=== PATIENT | male | born 1980 | race Hispanic/Latino ===

== ENCOUNTER 2021-01-08 06:54 | Inpatient (IN) | payer SELFPAY ==
[2021-01-08] MEDS ORDERED: Artificial Tear Sol 15 ML BOT EA EYE PRN (09:42)
[2021-01-08] MEDS ORDERED: Sodium Chloride 0.65% Nasal 44 ML BOT EA NARE PRN (09:42)
[2021-01-08] MEDS ORDERED: hydrALAZINE 20 MG/ML VIAL SLOW IVP PRN (09:42)
[2021-01-08] MEDS ORDERED: Bisacodyl 10 MG SUPP PR PRN (09:42)
[2021-01-08] MEDS ORDERED: Senokot S 8.6-50 MG TAB PO PRN (09:42)
[2021-01-08] MEDS ORDERED: HYDROcodone/Acetaminophen 5/325 mg Tablet PO PRN (09:42)
[2021-01-08] MEDS ORDERED: Loperamide HCl 2 MG CAP PO PRN (09:42)
[2021-01-08] MEDS ORDERED: Zolpidem Tartrate 5 MG TAB PO PRN (09:42)
[2021-01-08] MEDS ORDERED: Loratadine 10 MG TAB PO PRN (09:42)
[2021-01-08] MEDS ORDERED: Calcium Carbonate 500 MG ChewTAB PO PRN (09:42)
[2021-01-08] MEDS ORDERED: Hydrocerin (Eucerin) Cream 120 gm Jar TOP PRN (09:42)
[2021-01-08] MEDS ORDERED: Ondansetron ODT 4 MG TAB PO PRN (09:42)
[2021-01-08] MEDS ORDERED: Ondansetron PF 4 MG/2 ML Vial IVP PRN (09:42)
[2021-01-08] MEDS ORDERED: REMDESIVIR 200 MG in Sodium Chloride 0.9% 250 ML 210 ML IV SCH (10:15)
[2021-01-08] MEDS ORDERED: Cholecalciferol 1,000 UNITS (25 MCG) TAB PO SCH (12:00)
[2021-01-08] MEDS ORDERED: Ascorbic Acid 500 mg Chewable Tablet PO SCH (12:00)
[2021-01-08] MEDS ORDERED: Zinc Sulfate 220 MG CAP PO SCH (12:00)
[2021-01-08] MEDS ORDERED: Enoxaparin Sodium 40 MG/0.4 ML SYRINGE SC SCH (12:15)
[2021-01-09] MEDS: Guaifenesin DM 100-10/5 ML UDCUP PO PRN ×2 (01:45→10:12)
[2021-01-09 05:55] LABS: #Lymphocytes 1.8 thou/uL (1.20-3.40); #Monocytes 0.8 thou/uL (0.11-0.59); #Neutrophils 9.9 thou/uL (1.40-6.50); %Basophils 0.2 % (0.0-1.0); %Eosinophils 0.1 % (0.0-10.0); %Lymphocytes 14.6 % (21.0-51.0); %Monocytes 6.1 % (0.0-10.0); %Neutrophils 79.1 % (42.0-75.0); Hemoglobin 14.3 g/dL (14.0-18.0); Mean Corpuscular HGB CONC 32.8 g/dL (32.0-36.0); Mean Corpuscular Volume 82.3 fL (78.0-98.0); Mean Platelet Volume 7.6 fL (7.4-10.4); Platelet Count 226 thou/uL (130-400); RBC Distribution Width 13.9 % (11.5-14.5); Red Blood Cell (RBC) Count 5.31 mill/uL (4.70-6.10); White Blood Cell (WBC) Count 12.5 thou/uL (4.8-10.8)
[2021-01-09 06:14] LABS: ALT (SGPT) 88 U/L (8-55); AST (SGOT) 65 U/L (5-34); Albumin 3.5 g/dL (3.5-5.0); Alkaline Phosphatase 56 U/L (40-110); Anion Gap 14 mmol/L (10-20); BUN (Urea Nitrogen) 18 mg/dL (8.9-20.6); Bilirubin, Total 0.4 mg/dL (0.2-1.2); Calc. Creatinine Clearance 161 mL/min (70-130); Calcium 8.5 mg/dL (7.8-10.44); Carbon Dioxide 21 mmol/L (22-29); Chloride 110 mmol/L (98-107); Globulin 3.9 g/dL (2.4-3.5); Glucose 126 mg/dL (70-105); Magnesium 2.1 mg/dL (1.6-2.6); Phosphorus 2.9 mg/dL (2.3-4.7); Potassium 3.7 mmol/L (3.5-5.1); Protein, Total 7.4 g/dL (6.0-8.3); Sodium 141 mmol/L (136-145)
[2021-01-09] MEDS: Albuterol 200 PUFF (6.7GM INHALER) INH PRN ×3 (08:14→18:59)
[2021-01-09] MEDS: Acetaminophen 325 MG TAB PO PRN ×2 (08:15→18:56)
[2021-01-09] MEDS: Zinc Sulfate 220 MG CAP PO SCH (08:16)
[2021-01-09] MEDS: Cholecalciferol 1,000 UNITS (25 MCG) TAB PO SCH (08:16)
[2021-01-09] MEDS: Ascorbic Acid 500 mg Chewable Tablet PO SCH (08:16)
[2021-01-09] MEDS: Fluticasone Propionate Nasal Spray 16 gm Bottle NASAL SCH (08:16)
[2021-01-09] MEDS: Enoxaparin Sodium 40 MG/0.4 ML SYRINGE SC SCH (08:18)
[2021-01-09] MEDS: Dexamethasone 4 mg/ml Vial SLOW IVP SCH (08:18)
[2021-01-09] MEDS: REMDESIVIR 100 MG in Sodium Chloride 0.9% 250 ML 230 ML IV SCH (10:13)
[2021-01-10 08:19] LABS: Anion Gap 13 mmol/L (10-20); BUN (Urea Nitrogen) 16 mg/dL (8.9-20.6); Calc. Creatinine Clearance 188 mL/min (70-130); Calcium 8.4 mg/dL (7.8-10.44); Carbon Dioxide 26 mmol/L (22-29); Chloride 106 mmol/L (98-107); Glucose 97 mg/dL (70-105); Potassium 3.8 mmol/L (3.5-5.1); Sodium 141 mmol/L (136-145)
[2021-01-10 08:47] LABS: Band 8 % (5-11); Hemoglobin 14.7 g/dL (14.0-18.0); Lymphocytes 21 % (21-51); MDiff Complete? YES; Mean Corpuscular HGB CONC 32.4 g/dL (32.0-36.0); Mean Corpuscular Hemoglobin 26.8 pg (27.0-31.0); Mean Corpuscular Volume 82.7 fL (78.0-98.0); Mean Platelet Volume 7.3 fL (7.4-10.4); Monocytes 5 % (0-10); Neutrophil 66 % (42-75); Platelet Count 278 thou/uL (130-400); RBC Distribution Width 13.9 % (11.5-14.5); White Blood Cell (WBC) Count 14.2 thou/uL (4.8-10.8)
[2021-01-10] MEDS: Enoxaparin Sodium 40 MG/0.4 ML SYRINGE SC SCH ×2 (09:00→20:55)
[2021-01-10] MEDS: Ascorbic Acid 500 mg Chewable Tablet PO SCH (09:01)
[2021-01-10] MEDS: Zinc Sulfate 220 MG CAP PO SCH (09:01)
[2021-01-10] MEDS: Cholecalciferol 1,000 UNITS (25 MCG) TAB PO SCH (09:01)
[2021-01-10] MEDS: Dexamethasone 4 mg/ml Vial SLOW IVP SCH (09:01)
[2021-01-10] MEDS: Fluticasone Propionate Nasal Spray 16 gm Bottle NASAL SCH (09:02)
[2021-01-10] MEDS: REMDESIVIR 100 MG in Sodium Chloride 0.9% 250 ML 230 ML IV SCH (10:58)
[2021-01-10] MEDS: Ivermectin 3 MG TAB PO SCH (16:44)
[2021-01-10] MEDS: Dexamethasone 10 MG/ML VIAL SLOW IVP SCH (20:55)
[2021-01-11] MEDS: Enoxaparin Sodium 40 MG/0.4 ML SYRINGE SC SCH ×2 (09:18→20:36)
[2021-01-11] MEDS: Zinc Sulfate 220 MG CAP PO SCH (09:19)
[2021-01-11] MEDS: Dexamethasone 10 MG/ML VIAL SLOW IVP SCH ×2 (09:19→20:36)
[2021-01-11] MEDS: Ascorbic Acid 500 mg Chewable Tablet PO SCH (09:19)
[2021-01-11] MEDS: Cholecalciferol 1,000 UNITS (25 MCG) TAB PO SCH (09:19)
[2021-01-11] MEDS: Fluticasone Propionate Nasal Spray 16 gm Bottle NASAL SCH (09:20)
[2021-01-11] MEDS: REMDESIVIR 100 MG in Sodium Chloride 0.9% 250 ML 230 ML IV SCH (11:17)
[2021-01-11] MEDS: Ivermectin 3 MG TAB PO SCH (15:32)
[2021-01-12 03:53] LABS: Hemoglobin 14.7 g/dL (14.0-18.0); Mean Corpuscular HGB CONC 32.7 g/dL (32.0-36.0); Mean Corpuscular Hemoglobin 27.1 pg (27.0-31.0); Mean Corpuscular Volume 82.8 fL (78.0-98.0); Mean Platelet Volume 7.7 fL (7.4-10.4); Platelet Count 271 thou/uL (130-400); RBC Distribution Width 13.8 % (11.5-14.5); Red Blood Cell (RBC) Count 5.42 mill/uL (4.70-6.10); White Blood Cell (WBC) Count 15.5 thou/uL (4.8-10.8)
[2021-01-12 03:58] LABS: ALT (SGPT) 176 U/L (8-55); AST (SGOT) 81 U/L (5-34); Albumin 3.3 g/dL (3.5-5.0); Alkaline Phosphatase 67 U/L (40-110); Anion Gap 13 mmol/L (10-20); BUN (Urea Nitrogen) 18 mg/dL (8.9-20.6); Bilirubin, Total 0.6 mg/dL (0.2-1.2); Calc. Creatinine Clearance 186 mL/min (70-130); Calcium 8.4 mg/dL (7.8-10.44); Carbon Dioxide 22 mmol/L (22-29); Chloride 107 mmol/L (98-107); Globulin 3.6 g/dL (2.4-3.5); Glucose 144 mg/dL (70-105); Protein, Total 6.9 g/dL (6.0-8.3); Sodium 138 mmol/L (136-145)
[2021-01-12 04:19] LABS: Band 5 % (5-11); Lymphocytes 12 % (21-51); MDiff Complete? YES; Monocytes 3 % (0-10); Myelocyte 1 % (0-0); Neutrophil 79 % (42-75)
[2021-01-12] MEDS: Enoxaparin Sodium 40 MG/0.4 ML SYRINGE SC SCH (09:35)
[2021-01-12] MEDS: Dexamethasone 10 MG/ML VIAL SLOW IVP SCH ×2 (09:35→21:13)
[2021-01-12] MEDS: Cholecalciferol 1,000 UNITS (25 MCG) TAB PO SCH (09:36)
[2021-01-12] MEDS: Ascorbic Acid 500 mg Chewable Tablet PO SCH (09:36)
[2021-01-12] MEDS: Zinc Sulfate 220 MG CAP PO SCH (09:36)
[2021-01-12] MEDS: Fluticasone Propionate Nasal Spray 16 gm Bottle NASAL SCH (09:36)
[2021-01-12] MEDS: REMDESIVIR 100 MG in Sodium Chloride 0.9% 250 ML 230 ML IV SCH (11:06)
[2021-01-12] MEDS ORDERED: Enoxaparin Sodium 80 MG/0.8 ML SYRINGE SC SCH (12:30)
[2021-01-12] MEDS ORDERED: Iopamidol-370 76% 500 ML 1 ML ONE (13:46)
[2021-01-12] MEDS: Ivermectin 3 MG TAB PO SCH (16:14)
[2021-01-12] MEDS: Enoxaparin Sodium 120 MG/0.8 ML SYRINGE SC SCH (21:13)
[2021-01-13 04:22] LABS: Mean Corpuscular HGB CONC 31.6 g/dL (32.0-36.0); Mean Corpuscular Hemoglobin 26.1 pg (27.0-31.0); Mean Corpuscular Volume 82.7 fL (78.0-98.0); Mean Platelet Volume 7.6 fL (7.4-10.4); Platelet Count 222 thou/uL (130-400); RBC Distribution Width 14.1 % (11.5-14.5); Red Blood Cell (RBC) Count 5.76 mill/uL (4.70-6.10)
[2021-01-13 04:35] LABS: Anion Gap 13 mmol/L (10-20); BUN (Urea Nitrogen) 20 mg/dL (8.9-20.6); Calc. Creatinine Clearance 177 mL/min (70-130); Calcium 8.4 mg/dL (7.8-10.44); Carbon Dioxide 22 mmol/L (22-29); Chloride 106 mmol/L (98-107); Glucose 117 mg/dL (70-105); Potassium 4.2 mmol/L (3.5-5.1); Sodium 137 mmol/L (136-145)
[2021-01-13 06:06] LABS: White Blood Cell (WBC) Count 22.6 thou/uL (4.8-10.8)
[2021-01-13 06:07] LABS: Band 5 % (5-11); Eosinophils 1 % (0-10); Lymphocytes 8 % (21-51); MDiff Complete? YES; Monocytes 2 % (0-10); Neutrophil 84 % (42-75)
[2021-01-13] MEDS: Zinc Sulfate 220 MG CAP PO SCH (10:04)
[2021-01-13] MEDS: Enoxaparin Sodium 120 MG/0.8 ML SYRINGE SC SCH ×2 (10:04→20:39)
[2021-01-13] MEDS: Ascorbic Acid 500 mg Chewable Tablet PO SCH (10:04)
[2021-01-13] MEDS: Dexamethasone 10 MG/ML VIAL SLOW IVP SCH ×2 (10:04→20:40)
[2021-01-13] MEDS: Cholecalciferol 1,000 UNITS (25 MCG) TAB PO SCH (10:04)
[2021-01-13] MEDS: Fluticasone Propionate Nasal Spray 16 gm Bottle NASAL SCH (10:05)
[2021-01-13] MEDS: Ivermectin 3 MG TAB PO SCH (20:39)
[2021-01-14] MEDS: Ascorbic Acid 500 mg Chewable Tablet PO SCH (09:48)
[2021-01-14] MEDS: Cholecalciferol 1,000 UNITS (25 MCG) TAB PO SCH (09:48)
[2021-01-14] MEDS: Fluticasone Propionate Nasal Spray 16 gm Bottle NASAL SCH (09:48)
[2021-01-14] MEDS: Dexamethasone 10 MG/ML VIAL SLOW IVP SCH ×2 (09:49→20:56)
[2021-01-14] MEDS: Enoxaparin Sodium 120 MG/0.8 ML SYRINGE SC SCH ×2 (09:49→20:56)
[2021-01-14] MEDS: Zinc Sulfate 220 MG CAP PO SCH (09:51)
[2021-01-14] MEDS: Ivermectin 3 MG TAB PO SCH (23:03)
[2021-01-15 04:14] LABS: Hemoglobin 16.2 g/dL (14.0-18.0); Mean Corpuscular HGB CONC 32.7 g/dL (32.0-36.0); Mean Corpuscular Hemoglobin 26.8 pg (27.0-31.0); Mean Corpuscular Volume 82.1 fL (78.0-98.0); Mean Platelet Volume 7.6 fL (7.4-10.4); Platelet Count 180 thou/uL (130-400); RBC Distribution Width 14.2 % (11.5-14.5); Red Blood Cell (RBC) Count 6.03 mill/uL (4.70-6.10); White Blood Cell (WBC) Count 20.2 thou/uL (4.8-10.8)
[2021-01-15 04:17] LABS: Anion Gap 15 mmol/L (10-20); BUN (Urea Nitrogen) 20 mg/dL (8.9-20.6); Calc. Creatinine Clearance 178 mL/min (70-130); Calcium 8.4 mg/dL (7.8-10.44); Carbon Dioxide 18 mmol/L (22-29); Chloride 107 mmol/L (98-107); Glucose 141 mg/dL (70-105); Potassium 4.6 mmol/L (3.5-5.1); Sodium 135 mmol/L (136-145)
[2021-01-15 04:36] LABS: Band 7 % (5-11); Lymphocytes 16 % (21-51); MDiff Complete? YES; Monocytes 1 % (0-10); Neutrophil 76 % (42-75)
[2021-01-15] MEDS: Cholecalciferol 1,000 UNITS (25 MCG) TAB PO SCH (09:49)
[2021-01-15] MEDS: Ascorbic Acid 500 mg Chewable Tablet PO SCH (09:49)
[2021-01-15] MEDS: Fluticasone Propionate Nasal Spray 16 gm Bottle NASAL SCH (09:50)
[2021-01-15] MEDS: Enoxaparin Sodium 120 MG/0.8 ML SYRINGE SC SCH ×2 (09:50→20:17)
[2021-01-15] MEDS: Dexamethasone 10 MG/ML VIAL SLOW IVP SCH ×2 (09:50→20:17)
[2021-01-15] MEDS: Zinc Sulfate 220 MG CAP PO SCH (09:50)
[2021-01-15] MEDS: Doxycycline 100 MG CAP PO SCH (20:17)
[2021-01-15] MEDS: Ivermectin 3 MG TAB PO SCH (20:17)
[2021-01-16 04:17] LABS: Anion Gap 15 mmol/L (10-20); BUN (Urea Nitrogen) 16 mg/dL (8.9-20.6); CRP (Inflammatory) 1.78 mg/dL (= or < 0.5); Calc. Creatinine Clearance 188 mL/min (70-130); Calcium 8.3 mg/dL (7.8-10.44); Carbon Dioxide 18 mmol/L (22-29); Chloride 104 mmol/L (98-107); Glucose 146 mg/dL (70-105); Potassium 4.5 mmol/L (3.5-5.1); Sodium 132 mmol/L (136-145)
[2021-01-16 04:36] LABS: Hemoglobin 16.1 g/dL (14.0-18.0); Lymphocytes 8 % (21-51); MDiff Complete? YES; Mean Corpuscular HGB CONC 32.7 g/dL (32.0-36.0); Mean Corpuscular Hemoglobin 26.9 pg (27.0-31.0); Mean Corpuscular Volume 82.2 fL (78.0-98.0); Mean Platelet Volume 7.8 fL (7.4-10.4); Monocytes 1 % (0-10); Neutrophil 91 % (42-75); Platelet Count 151 thou/uL (130-400); Platelet Morphology Comment Appears Adequate; RBC Distribution Width 14.2 % (11.5-14.5); RBC Morphology Normal; Red Blood Cell (RBC) Count 6.01 mill/uL (4.70-6.10); White Blood Cell (WBC) Count 18.9 thou/uL (4.8-10.8)
[2021-01-16] MEDS: Enoxaparin Sodium 120 MG/0.8 ML SYRINGE SC SCH ×2 (09:54→20:53)
[2021-01-16] MEDS: Ascorbic Acid 500 mg Chewable Tablet PO SCH (09:54)
[2021-01-16] MEDS: Zinc Sulfate 220 MG CAP PO SCH (09:54)
[2021-01-16] MEDS: Cholecalciferol 1,000 UNITS (25 MCG) TAB PO SCH (09:54)
[2021-01-16] MEDS: Doxycycline 100 MG CAP PO SCH ×2 (09:54→20:53)
[2021-01-16] MEDS: Albuterol 200 PUFF (6.7GM INHALER) INH PRN ×2 (09:55→16:00)
[2021-01-16] MEDS: Fluticasone Propionate Nasal Spray 16 gm Bottle NASAL SCH (10:05)
[2021-01-16] MEDS: Dexamethasone 10 MG/ML VIAL SLOW IVP SCH ×2 (10:13→20:53)
[2021-01-16] MEDS: Ivermectin 3 MG TAB PO SCH (20:53)
[2021-01-16] MEDS: Benzonatate 100 MG CAP PO PRN (20:53)
[2021-01-16] MEDS: Melatonin 3 MG TAB PO PRN (22:26)
[2021-01-17 03:57] LABS: Hemoglobin 16.7 g/dL (14.0-18.0); Platelet Count 164 thou/uL (130-400)
[2021-01-17 04:14] LABS: Calc. Creatinine Clearance 172 mL/min (70-130)
[2021-01-17 04:16] LABS: Anion Gap 15 mmol/L (10-20); BUN (Urea Nitrogen) 20 mg/dL (8.9-20.6); CRP (Inflammatory) 1.56 mg/dL (= or < 0.5); Calc. Creatinine Clearance 179 mL/min (70-130); Calcium 8.8 mg/dL (7.8-10.44); Carbon Dioxide 19 mmol/L (22-29); Chloride 103 mmol/L (98-107); Glucose 135 mg/dL (70-105); Potassium 4.9 mmol/L (3.5-5.1); Sodium 132 mmol/L (136-145)
[2021-01-17 04:33] LABS: Band 1 % (5-11); Lymphocytes 9 % (21-51); MDiff Complete? YES; Mean Corpuscular HGB CONC 33.4 g/dL (32.0-36.0); Mean Corpuscular Hemoglobin 27.4 pg (27.0-31.0); Mean Corpuscular Volume 82.1 fL (78.0-98.0); Mean Platelet Volume 7.9 fL (7.4-10.4); Monocytes 5 % (0-10); Neutrophil 85 % (42-75); Platelet Count 157 thou/uL (130-400); Platelet Morphology Comment Appears Adequate; RBC Distribution Width 14.3 % (11.5-14.5); Red Blood Cell (RBC) Count 6.19 mill/uL (4.70-6.10); White Blood Cell (WBC) Count 17.7 thou/uL (4.8-10.8)
[2021-01-17] MEDS: Enoxaparin Sodium 120 MG/0.8 ML SYRINGE SC SCH ×2 (08:20→20:16)
[2021-01-17] MEDS: Dexamethasone 10 MG/ML VIAL SLOW IVP SCH ×2 (08:20→20:17)
[2021-01-17] MEDS: Cholecalciferol 1,000 UNITS (25 MCG) TAB PO SCH (08:20)
[2021-01-17] MEDS: Zinc Sulfate 220 MG CAP PO SCH (08:20)
[2021-01-17] MEDS: Doxycycline 100 MG CAP PO SCH ×2 (08:20→20:15)
[2021-01-17] MEDS: Ascorbic Acid 500 mg Chewable Tablet PO SCH (08:20)
[2021-01-17] MEDS: Fluticasone Propionate Nasal Spray 16 gm Bottle NASAL SCH (08:21)
[2021-01-17] MEDS: ALPRAZolam 0.5 MG TAB PO PRN (16:05)
[2021-01-17] MEDS: Ivermectin 3 MG TAB PO SCH (20:15)
[2021-01-18] MEDS: Melatonin 3 MG TAB PO PRN ×2 (00:27→21:38)
[2021-01-18 04:14] LABS: Anion Gap 14 mmol/L (10-20); BUN (Urea Nitrogen) 23 mg/dL (8.9-20.6); CRP (Inflammatory) 0.52 mg/dL (= or < 0.5); Calc. Creatinine Clearance 169 mL/min (70-130); Calcium 8.5 mg/dL (7.8-10.44); Carbon Dioxide 20 mmol/L (22-29); Chloride 105 mmol/L (98-107); Glucose 131 mg/dL (70-105); Potassium 4.6 mmol/L (3.5-5.1); Sodium 134 mmol/L (136-145)
[2021-01-18 04:18] LABS: Band 1 % (5-11); Hemoglobin 16.6 g/dL (14.0-18.0); Lymphocytes 4 % (21-51); MDiff Complete? YES; Mean Corpuscular HGB CONC 32.3 g/dL (32.0-36.0); Mean Corpuscular Hemoglobin 26.4 pg (27.0-31.0); Mean Corpuscular Volume 81.8 fL (78.0-98.0); Mean Platelet Volume 8.2 fL (7.4-10.4); Neutrophil 95 % (42-75); Platelet Count 163 thou/uL (130-400); Platelet Morphology Comment Appears Adequate; RBC Distribution Width 14.4 % (11.5-14.5); RBC Morphology Normal; Red Blood Cell (RBC) Count 6.28 mill/uL (4.70-6.10); White Blood Cell (WBC) Count 18.8 thou/uL (4.8-10.8)
[2021-01-18] MEDS: Ascorbic Acid 500 mg Chewable Tablet PO SCH (09:14)
[2021-01-18] MEDS: Dexamethasone 10 MG/ML VIAL SLOW IVP SCH ×2 (09:15→20:21)
[2021-01-18] MEDS: Fluticasone Propionate Nasal Spray 16 gm Bottle NASAL SCH (09:15)
[2021-01-18] MEDS: Cholecalciferol 1,000 UNITS (25 MCG) TAB PO SCH (09:15)
[2021-01-18] MEDS: Doxycycline 100 MG CAP PO SCH ×2 (09:15→20:21)
[2021-01-18] MEDS: Enoxaparin Sodium 120 MG/0.8 ML SYRINGE SC SCH ×2 (09:15→20:20)
[2021-01-18] MEDS: Zinc Sulfate 220 MG CAP PO SCH (09:16)
[2021-01-18] MEDS: ALPRAZolam 0.5 MG TAB PO PRN ×2 (10:05→21:37)
[2021-01-18] MEDS: Ivermectin 3 MG TAB PO SCH (20:22)
[2021-01-19 04:41] LABS: Anion Gap 15 mmol/L (10-20); BUN (Urea Nitrogen) 31 mg/dL (8.9-20.6); Calc. Creatinine Clearance 164 mL/min (70-130); Calcium 8.6 mg/dL (7.8-10.44); Carbon Dioxide 18 mmol/L (22-29); Chloride 105 mmol/L (98-107); Glucose 154 mg/dL (70-105); Potassium 4.7 mmol/L (3.5-5.1); Sodium 133 mmol/L (136-145)
[2021-01-19 05:12] LABS: Hemoglobin 16.1 g/dL (14.0-18.0); Lymphocytes 10 % (21-51); MDiff Complete? YES; Mean Corpuscular HGB CONC 31.5 g/dL (32.0-36.0); Mean Corpuscular Hemoglobin 25.9 pg (27.0-31.0); Mean Corpuscular Volume 82.4 fL (78.0-98.0); Mean Platelet Volume 8.7 fL (7.4-10.4); Monocytes 2 % (0-10); Neutrophil 82 % (42-75); Platelet Count 165 thou/uL (130-400); Platelet Morphology Comment Appears Adequate; RBC Distribution Width 14.3 % (11.5-14.5); RBC Morphology Normal; Reactive Lymphocytes 6 % (0-10); Red Blood Cell (RBC) Count 6.21 mill/uL (4.70-6.10); White Blood Cell (WBC) Count 18.6 thou/uL (4.8-10.8)
[2021-01-19] MEDS: Ascorbic Acid 500 mg Chewable Tablet PO SCH (09:26)
[2021-01-19] MEDS: Zinc Sulfate 220 MG CAP PO SCH (09:27)
[2021-01-19] MEDS: Cholecalciferol 1,000 UNITS (25 MCG) TAB PO SCH (09:27)
[2021-01-19] MEDS: Dexamethasone 10 MG/ML VIAL SLOW IVP SCH ×2 (09:27→22:37)
[2021-01-19] MEDS: Enoxaparin Sodium 120 MG/0.8 ML SYRINGE SC SCH ×2 (09:27→22:37)
[2021-01-19] MEDS: Doxycycline 100 MG CAP PO SCH ×2 (09:27→22:19)
[2021-01-19] MEDS: Sodium Chloride 0.9% 1,000 ML IV SCH ×2 (09:28→22:38)
[2021-01-19] MEDS: Fluticasone Propionate Nasal Spray 16 gm Bottle NASAL SCH (09:28)
[2021-01-19] MEDS: Pantoprazole 40 MG VIAL IVP SCH (09:28)
[2021-01-19] MEDS: Ivermectin 3 MG TAB PO SCH (22:38)
[2021-01-20] MEDS: Sodium Chloride 0.9% 1,000 ML IV SCH ×2 (00:16→14:40)
[2021-01-20] MEDS: Melatonin 3 MG TAB PO PRN ×2 (00:19→22:07)
[2021-01-20 04:12] LABS: #Eosinphils 0.1 thou/uL (0.0-0.7); #Lymphocytes 1.8 thou/uL (1.20-3.40); #Monocytes 0.7 thou/uL (0.11-0.59); #Neutrophils 16.4 thou/uL (1.40-6.50); %Eosinophils 0.5 % (0.0-10.0); %Lymphocytes 9.6 % (21.0-51.0); %Monocytes 3.9 % (0.0-10.0); %Neutrophils 86.1 % (42.0-75.0); Hemoglobin 16.1 g/dL (14.0-18.0); Mean Corpuscular HGB CONC 33.5 g/dL (32.0-36.0); Mean Corpuscular Hemoglobin 27.6 pg (27.0-31.0); Mean Corpuscular Volume 82.3 fL (78.0-98.0); Mean Platelet Volume 8.3 fL (7.4-10.4); Platelet Count 157 thou/uL (130-400); RBC Distribution Width 13.9 % (11.5-14.5); Red Blood Cell (RBC) Count 5.84 mill/uL (4.70-6.10)
[2021-01-20 08:29] LABS: Anion Gap 12 mmol/L (10-20); BUN (Urea Nitrogen) 24 mg/dL (8.9-20.6); CRP (Inflammatory) Less than 0.50 mg/dL (= or < 0.5); Calc. Creatinine Clearance 192 mL/min (70-130); Calcium 8.2 mg/dL (7.8-10.44); Carbon Dioxide 21 mmol/L (22-29); Chloride 106 mmol/L (98-107); Glucose 102 mg/dL (70-105); Potassium 4.4 mmol/L (3.5-5.1); Sodium 135 mmol/L (136-145)
[2021-01-20] MEDS: Lorazepam 2 MG/ML VIAL SLOW IVP PRN ×3 (09:22→23:35)
[2021-01-20] MEDS: Zinc Sulfate 220 MG CAP PO SCH (09:28)
[2021-01-20] MEDS: Enoxaparin Sodium 120 MG/0.8 ML SYRINGE SC SCH ×2 (09:28→21:58)
[2021-01-20] MEDS: Dexamethasone 10 MG/ML VIAL SLOW IVP SCH ×2 (09:28→21:58)
[2021-01-20] MEDS: Pantoprazole 40 MG VIAL IVP SCH (09:28)
[2021-01-20] MEDS: Ascorbic Acid 500 mg Chewable Tablet PO SCH (09:28)
[2021-01-20] MEDS: Cholecalciferol 1,000 UNITS (25 MCG) TAB PO SCH (09:29)
[2021-01-20] MEDS: Doxycycline 100 MG CAP PO SCH ×2 (09:29→21:58)
[2021-01-20] MEDS: Fluticasone Propionate Nasal Spray 16 gm Bottle NASAL SCH (09:30)
[2021-01-20] MEDS: Temazepam 15 MG CAP PO PRN (22:07)
[2021-01-21] MEDS: Sodium Chloride 0.9% 1,000 ML IV SCH ×2 (02:30→09:49)
[2021-01-21 04:22] LABS: Hemoglobin 15.8 g/dL (14.0-18.0); Platelet Count 157 thou/uL (130-400)
[2021-01-21 04:44] LABS: Anion Gap 11 mmol/L (10-20); BUN (Urea Nitrogen) 22 mg/dL (8.9-20.6); Calc. Creatinine Clearance 182 mL/min (70-130); Calcium 8.2 mg/dL (7.8-10.44); Carbon Dioxide 25 mmol/L (22-29); Chloride 104 mmol/L (98-107); Glucose 142 mg/dL (70-105); Potassium 4.5 mmol/L (3.5-5.1); Sodium 135 mmol/L (136-145)
[2021-01-21 04:50] LABS: Hemoglobin 15.4 g/dL (14.0-18.0); Mean Corpuscular HGB CONC 31.9 g/dL (32.0-36.0); Mean Corpuscular Hemoglobin 26.4 pg (27.0-31.0); Mean Corpuscular Volume 82.8 fL (78.0-98.0); Mean Platelet Volume 8.4 fL (7.4-10.4); Platelet Count 155 thou/uL (130-400); RBC Distribution Width 14.2 % (11.5-14.5); Red Blood Cell (RBC) Count 5.81 mill/uL (4.70-6.10)
[2021-01-21 04:51] LABS: Band 1 % (5-11); Eosinophils 1 % (0-10); Hypochromia SLIGHT = 6-15 cells (100X) (0-5/hpf); Lymphocytes 5 % (21-51); MDiff Complete? YES; Metamyelocyte 1 % (0-0); Monocytes 4 % (0-10); Myelocyte 2 % (0-0); Neutrophil 85 % (42-75); Platelet Morphology Comment Appears Adequate; Reactive Lymphocytes 1 % (0-10)
[2021-01-21] MEDS: Doxycycline 100 MG CAP PO SCH ×2 (09:26→20:13)
[2021-01-21] MEDS: Cholecalciferol 1,000 UNITS (25 MCG) TAB PO SCH (09:26)
[2021-01-21] MEDS: Ascorbic Acid 500 mg Chewable Tablet PO SCH (09:26)
[2021-01-21] MEDS: Zinc Sulfate 220 MG CAP PO SCH (09:26)
[2021-01-21] MEDS: Enoxaparin Sodium 120 MG/0.8 ML SYRINGE SC SCH ×2 (09:26→20:13)
[2021-01-21] MEDS: Lorazepam 2 MG/ML VIAL SLOW IVP PRN ×2 (09:27→15:56)
[2021-01-21] MEDS: Dexamethasone 10 MG/ML VIAL SLOW IVP SCH ×2 (09:28→20:13)
[2021-01-21] MEDS: Fluticasone Propionate Nasal Spray 16 gm Bottle NASAL SCH (09:47)
[2021-01-21] MEDS: Acetaminophen 325 MG TAB PO PRN (15:56)
[2021-01-22] MEDS: Melatonin 3 MG TAB PO PRN ×2 (00:48→23:42)
[2021-01-22] MEDS: Temazepam 15 MG CAP PO PRN (00:48)
[2021-01-22] MEDS: Sodium Chloride 0.9% 1,000 ML IV SCH ×2 (05:03→18:31)
[2021-01-22 05:10] LABS: Anion Gap 11 mmol/L (10-20); BUN (Urea Nitrogen) 20 mg/dL (8.9-20.6); Calc. Creatinine Clearance 192 mL/min (70-130); Calcium 8.4 mg/dL (7.8-10.44); Carbon Dioxide 26 mmol/L (22-29); Chloride 104 mmol/L (98-107); Glucose 135 mg/dL (70-105); Potassium 4.5 mmol/L (3.5-5.1); Sodium 136 mmol/L (136-145)
[2021-01-22 05:11] LABS: Band 1 % (5-11); Hemoglobin 15.1 g/dL (14.0-18.0); Lymphocytes 17 % (21-51); MDiff Complete? YES; Mean Corpuscular HGB CONC 32.9 g/dL (32.0-36.0); Mean Corpuscular Hemoglobin 27.1 pg (27.0-31.0); Mean Corpuscular Volume 82.4 fL (78.0-98.0); Mean Platelet Volume 8.6 fL (7.4-10.4); Monocytes 9 % (0-10); Neutrophil 71 % (42-75); Platelet Count 169 thou/uL (130-400); Platelet Morphology Comment Appears Adequate; RBC Distribution Width 14.3 % (11.5-14.5); RBC Morphology Normal; Reactive Lymphocytes 2 % (0-10); Red Blood Cell (RBC) Count 5.57 mill/uL (4.70-6.10); White Blood Cell (WBC) Count 18.6 thou/uL (4.8-10.8)
[2021-01-22] MEDS: Dexamethasone 10 MG/ML VIAL SLOW IVP SCH ×2 (09:16→21:18)
[2021-01-22] MEDS: Zinc Sulfate 220 MG CAP PO SCH (09:17)
[2021-01-22] MEDS: Ascorbic Acid 500 mg Chewable Tablet PO SCH (09:17)
[2021-01-22] MEDS: Enoxaparin Sodium 120 MG/0.8 ML SYRINGE SC SCH ×2 (09:17→21:24)
[2021-01-22] MEDS: Cholecalciferol 1,000 UNITS (25 MCG) TAB PO SCH (09:17)
[2021-01-22] MEDS: Fluticasone Propionate Nasal Spray 16 gm Bottle NASAL SCH (09:21)
[2021-01-22] MEDS: Acetaminophen 325 MG TAB PO PRN (14:42)
[2021-01-23 04:13] LABS: #Basophils 0.1 thou/uL (0.0-0.2); #Eosinphils 0.2 thou/uL (0.0-0.7); #Lymphocytes 1.7 thou/uL (1.20-3.40); #Monocytes 0.7 thou/uL (0.11-0.59); %Basophils 0.4 % (0.0-1.0); %Eosinophils 0.9 % (0.0-10.0); %Monocytes 3.8 % (0.0-10.0); %Neutrophils 85.9 % (42.0-75.0); Hemoglobin 15.4 g/dL (14.0-18.0); Mean Corpuscular HGB CONC 32.6 g/dL (32.0-36.0); Mean Corpuscular Volume 82.8 fL (78.0-98.0); Mean Platelet Volume 8.1 fL (7.4-10.4); Platelet Count 170 thou/uL (130-400); RBC Distribution Width 14.5 % (11.5-14.5); Red Blood Cell (RBC) Count 5.73 mill/uL (4.70-6.10); White Blood Cell (WBC) Count 18.7 thou/uL (4.8-10.8)
[2021-01-23 04:28] LABS: Anion Gap 8 mmol/L (10-20); BUN (Urea Nitrogen) 22 mg/dL (8.9-20.6); Calc. Creatinine Clearance 202 mL/min (70-130); Calcium 8.3 mg/dL (7.8-10.44); Carbon Dioxide 27 mmol/L (22-29); Chloride 103 mmol/L (98-107); Glucose 132 mg/dL (70-105); Potassium 4.4 mmol/L (3.5-5.1); Sodium 134 mmol/L (136-145)
[2021-01-23] MEDS: Cholecalciferol 1,000 UNITS (25 MCG) TAB PO SCH (09:21)
[2021-01-23] MEDS: Ascorbic Acid 500 mg Chewable Tablet PO SCH (09:21)
[2021-01-23] MEDS: Dexamethasone 10 MG/ML VIAL SLOW IVP SCH (09:22)
[2021-01-23] MEDS: Enoxaparin Sodium 120 MG/0.8 ML SYRINGE SC SCH ×2 (09:22→21:07)
[2021-01-23] MEDS: Fluticasone Propionate Nasal Spray 16 gm Bottle NASAL SCH (09:23)
[2021-01-23] MEDS: Zinc Sulfate 220 MG CAP PO SCH (09:24)
[2021-01-23] MEDS: Dexamethasone 4 mg/ml Vial SLOW IVP SCH (09:38)
[2021-01-23] MEDS ORDERED: Mag-Al 1200 mg/1200 mg/30 ML UDCUP PO PRN (17:28)
[2021-01-23] MEDS: Temazepam 15 MG CAP PO PRN (21:11)
[2021-01-24] MEDS: Sodium Chloride 0.9% 1,000 ML IV SCH ×2 (01:39→03:22)
[2021-01-24 05:17] LABS: Phosphorus 4.3 mg/dL (2.3-4.7)
[2021-01-24 05:18] LABS: Mean Corpuscular HGB CONC 32.4 g/dL (32.0-36.0); Mean Corpuscular Volume 83.3 fL (78.0-98.0); Mean Platelet Volume 8.5 fL (7.4-10.4); Platelet Count 175 thou/uL (130-400); RBC Distribution Width 14.5 % (11.5-14.5); Red Blood Cell (RBC) Count 5.58 mill/uL (4.70-6.10); White Blood Cell (WBC) Count 18.8 thou/uL (4.8-10.8)
[2021-01-24 05:20] LABS: Anion Gap 12 mmol/L (10-20); BUN (Urea Nitrogen) 21 mg/dL (8.9-20.6); Calc. Creatinine Clearance 187 mL/min (70-130); Calcium 8.5 mg/dL (7.8-10.44); Carbon Dioxide 24 mmol/L (22-29); Chloride 104 mmol/L (98-107); Glucose 84 mg/dL (70-105); Potassium 4.3 mmol/L (3.5-5.1); Sodium 136 mmol/L (136-145)
[2021-01-24 06:49] LABS: Band 7 % (5-11); Eosinophils 3 % (0-10); Lymphocytes 16 % (21-51); MDiff Complete? YES; Monocytes 2 % (0-10); Neutrophil 72 % (42-75)
[2021-01-24] MEDS ORDERED: Furosemide 100 MG/10 ML VIAL SLOW IVP SCH (08:00)
[2021-01-24] MEDS ORDERED: Furosemide 40 MG/4 ML VIAL SLOW IVP SCH (08:00)
[2021-01-24] MEDS: Dexamethasone 4 mg/ml Vial SLOW IVP SCH (08:39)
[2021-01-24] MEDS: Enoxaparin Sodium 120 MG/0.8 ML SYRINGE SC SCH ×2 (08:39→20:17)
[2021-01-24] MEDS: Fluticasone Propionate Nasal Spray 16 gm Bottle NASAL SCH (08:40)
[2021-01-24] MEDS: Zinc Sulfate 220 MG CAP PO SCH (08:40)
[2021-01-24] MEDS: Cholecalciferol 1,000 UNITS (25 MCG) TAB PO SCH (08:40)
[2021-01-24] MEDS: Ascorbic Acid 500 mg Chewable Tablet PO SCH (08:40)
[2021-01-24] MEDS: Vitamin E 400 UNITS CAP PO SCH (09:24)
[2021-01-24] MEDS: Temazepam 15 MG CAP PO PRN (23:02)
[2021-01-25] MEDS: Sodium Chloride 0.9% 1,000 ML IV SCH ×2 (00:54→09:56)
[2021-01-25 04:44] LABS: Hemoglobin 15.4 g/dL (14.0-18.0); Mean Corpuscular HGB CONC 33.3 g/dL (32.0-36.0); Mean Corpuscular Hemoglobin 27.6 pg (27.0-31.0); Mean Corpuscular Volume 82.7 fL (78.0-98.0); Platelet Count 177 thou/uL (130-400); RBC Distribution Width 14.7 % (11.5-14.5); Red Blood Cell (RBC) Count 5.59 mill/uL (4.70-6.10); White Blood Cell (WBC) Count 25.2 thou/uL (4.8-10.8)
[2021-01-25 04:54] LABS: Phosphorus 3.7 mg/dL (2.3-4.7)
[2021-01-25 04:55] LABS: Anion Gap 13 mmol/L (10-20); BUN (Urea Nitrogen) 21 mg/dL (8.9-20.6); Calc. Creatinine Clearance 172 mL/min (70-130); Calcium 8.4 mg/dL (7.8-10.44); Carbon Dioxide 24 mmol/L (22-29); Chloride 104 mmol/L (98-107); Glucose 90 mg/dL (70-105); Potassium 3.8 mmol/L (3.5-5.1); Sodium 137 mmol/L (136-145)
[2021-01-25 06:13] LABS: Band 6 % (5-11); Eosinophils 10 % (0-10); Lymphocytes 5 % (21-51); MDiff Complete? YES; Monocytes 4 % (0-10); Neutrophil 68 % (42-75); Platelet Morphology Comment Appears Adequate; Reactive Lymphocytes 7 % (0-10)
[2021-01-25] MEDS ORDERED: Ventilator Sedation Protocol 1 EACH FS ONE (07:54)
[2021-01-25] MEDS ORDERED: fentaNYL Citrate/PF 2,000 MCG in Sodium Chloride 0.9% 60 ML IV PRN (07:56)
[2021-01-25] MEDS ORDERED: Propofol 1,000 MG/100 ML VIAL IV PRN ×2 (07:56→08:45)
[2021-01-25] MEDS ORDERED: Vecuronium Bromide 50 MG in Sodium Chloride 0.9% 250 ML 250 ML IV SCH (07:57)
[2021-01-25] MEDS ORDERED: Lorazepam 2 MG/ML VIAL SLOW IVP PRN (08:45)
[2021-01-25] MEDS ORDERED: Morphine 2 MG/ML VIAL SLOW IVP PRN (08:45)
[2021-01-25] MEDS ORDERED: Propofol BOLUS 1,000 MG/100 ML VIAL IV PRN (08:45)
[2021-01-25] MEDS ORDERED: Fentanyl BOLUS 250 ML IVPB PRN (08:45)
[2021-01-25] MEDS ORDERED: fentaNYL Citrate/PF 2,000 MCG in Sodium Chloride 0.9% 60 ML IV SCH (08:45)
[2021-01-25] MEDS ORDERED: DISCONTINUE PREVIOUS NARCOTIC PAIN MEDICATIONS AND BENZODIAZEPINES FS SCH (08:45)
[2021-01-25] MEDS: Enoxaparin Sodium 120 MG/0.8 ML SYRINGE SC SCH ×2 (09:56→22:15)
[2021-01-25] MEDS: Dexamethasone 4 mg/ml Vial SLOW IVP SCH (09:57)
[2021-01-25] MEDS: Zinc Sulfate 220 MG CAP PO SCH (09:57)
[2021-01-25] MEDS: Cholecalciferol 1,000 UNITS (25 MCG) TAB PO SCH (09:58)
[2021-01-25] MEDS: Fluticasone Propionate Nasal Spray 16 gm Bottle NASAL SCH (09:58)
[2021-01-25] MEDS: Vitamin E 400 UNITS CAP PO SCH (09:58)
[2021-01-25] MEDS: Ascorbic Acid 500 mg Chewable Tablet PO SCH (09:58)
[2021-01-25] MEDS: Acetaminophen 325 MG TAB PO PRN (12:04)
[2021-01-25] MEDS: Benzonatate 100 MG CAP PO PRN ×3 (12:04→23:06)
[2021-01-25] MEDS: Cepastat Lozenges 1 LOZ PO PRN ×3 (12:35→22:16)
[2021-01-25] MEDS: Budesonide 0.5 MG/2 ML NEB NEB SCH (19:09)
[2021-01-25] MEDS ORDERED: traZODone HCl 50 MG TAB PO SCH (22:00)
[2021-01-26] MEDS: Melatonin 3 MG TAB PO PRN ×2 (00:14→23:31)
[2021-01-26 04:29] LABS: #Eosinphils 0.6 thou/uL (0.0-0.7); #Lymphocytes 3.6 thou/uL (1.20-3.40); #Monocytes 1.1 thou/uL (0.11-0.59); #Neutrophils 11.4 thou/uL (1.40-6.50); %Basophils 0.1 % (0.0-1.0); %Eosinophils 3.6 % (0.0-10.0); %Lymphocytes 21.7 % (21.0-51.0); %Monocytes 6.4 % (0.0-10.0); %Neutrophils 68.2 % (42.0-75.0); Hemoglobin 13.9 g/dL (14.0-18.0); Mean Corpuscular Hemoglobin 26.8 pg (27.0-31.0); Mean Corpuscular Volume 83.9 fL (78.0-98.0); Mean Platelet Volume 7.5 fL (7.4-10.4); Platelet Count 176 thou/uL (130-400); White Blood Cell (WBC) Count 16.8 thou/uL (4.8-10.8)
[2021-01-26 04:47] LABS: Anion Gap 11 mmol/L (10-20); BUN (Urea Nitrogen) 14 mg/dL (8.9-20.6); Calc. Creatinine Clearance 220 mL/min (70-130); Carbon Dioxide 24 mmol/L (22-29); Chloride 109 mmol/L (98-107); Glucose 99 mg/dL (70-105); Potassium 3.6 mmol/L (3.5-5.1); Sodium 140 mmol/L (136-145)
[2021-01-26] MEDS: Benzonatate 100 MG CAP PO PRN ×3 (06:40→23:30)
[2021-01-26] MEDS: Acetaminophen 325 MG TAB PO PRN (06:42)
[2021-01-26] MEDS: Budesonide 0.5 MG/2 ML NEB NEB SCH ×2 (08:59→20:05)
[2021-01-26] MEDS: Cholecalciferol 1,000 UNITS (25 MCG) TAB PO SCH (09:14)
[2021-01-26] MEDS: Zinc Sulfate 220 MG CAP PO SCH (09:14)
[2021-01-26] MEDS: Dexamethasone 4 mg/ml Vial SLOW IVP SCH (09:14)
[2021-01-26] MEDS: Vitamin E 400 UNITS CAP PO SCH (09:14)
[2021-01-26] MEDS: Apixaban 5 MG TAB PO SCH ×2 (09:14→20:21)
[2021-01-26] MEDS: Fluticasone Propionate Nasal Spray 16 gm Bottle NASAL SCH (09:18)
[2021-01-26] MEDS: Ascorbic Acid 500 mg Chewable Tablet PO SCH ×2 (09:59→10:51)
[2021-01-26] MEDS: Sodium Chloride 0.9% 1,000 ML IV SCH (10:31)
[2021-01-26] MEDS: Cepastat Lozenges 1 LOZ PO PRN ×2 (20:21→23:30)
[2021-01-26] MEDS: Guaifenesin DM 100-10/5 ML UDCUP PO PRN (21:34)
[2021-01-27 04:18] LABS: #Basophils 0.1 thou/uL (0.0-0.2); #Eosinphils 0.8 thou/uL (0.0-0.7); #Lymphocytes 3.9 thou/uL (1.20-3.40); #Neutrophils 11.9 thou/uL (1.40-6.50); %Basophils 0.3 % (0.0-1.0); %Eosinophils 4.4 % (0.0-10.0); %Lymphocytes 21.9 % (21.0-51.0); %Monocytes 5.9 % (0.0-10.0); %Neutrophils 67.4 % (42.0-75.0); Hemoglobin 13.8 g/dL (14.0-18.0); Mean Corpuscular HGB CONC 33.2 g/dL (32.0-36.0); Mean Corpuscular Hemoglobin 27.8 pg (27.0-31.0); Mean Corpuscular Volume 83.7 fL (78.0-98.0); Mean Platelet Volume 7.2 fL (7.4-10.4); Platelet Count 178 thou/uL (130-400); Red Blood Cell (RBC) Count 4.97 mill/uL (4.70-6.10); White Blood Cell (WBC) Count 17.7 thou/uL (4.8-10.8)
[2021-01-27 04:44] LABS: Anion Gap 11 mmol/L (10-20); BUN (Urea Nitrogen) 14 mg/dL (8.9-20.6); Calc. Creatinine Clearance 197 mL/min (70-130); Calcium 8.2 mg/dL (7.8-10.44); Carbon Dioxide 26 mmol/L (22-29); Chloride 106 mmol/L (98-107); Glucose 97 mg/dL (70-105); Potassium 3.7 mmol/L (3.5-5.1); Sodium 139 mmol/L (136-145)
[2021-01-27] MEDS: Cepastat Lozenges 1 LOZ PO PRN ×3 (05:37→19:57)
[2021-01-27] MEDS: Guaifenesin DM 100-10/5 ML UDCUP PO PRN ×2 (05:37→14:46)
[2021-01-27] MEDS: Benzonatate 100 MG CAP PO PRN ×3 (05:37→19:56)
[2021-01-27] MEDS: Budesonide 0.5 MG/2 ML NEB NEB SCH ×2 (07:50→19:56)
[2021-01-27] MEDS: Cholecalciferol 1,000 UNITS (25 MCG) TAB PO SCH (08:51)
[2021-01-27] MEDS: Apixaban 5 MG TAB PO SCH ×2 (08:51→19:56)
[2021-01-27] MEDS: Ascorbic Acid 500 mg Chewable Tablet PO SCH (08:51)
[2021-01-27] MEDS: Zinc Sulfate 220 MG CAP PO SCH (08:51)
[2021-01-27] MEDS: Dexamethasone 4 mg/ml Vial SLOW IVP SCH (08:52)
[2021-01-27] MEDS: Vitamin E 400 UNITS CAP PO SCH (08:54)
[2021-01-27] MEDS: Fluticasone Propionate Nasal Spray 16 gm Bottle NASAL SCH (08:55)
[2021-01-27] MEDS: Dexamethasone 4 MG TAB PO SCH (09:27)
[2021-01-27] MEDS: Melatonin 3 MG TAB PO PRN (19:56)
[2021-01-28] MEDS: Budesonide 0.5 MG/2 ML NEB NEB SCH ×2 (08:33→19:15)
[2021-01-28] MEDS: Ascorbic Acid 500 mg Chewable Tablet PO SCH (09:13)
[2021-01-28] MEDS: Cholecalciferol 1,000 UNITS (25 MCG) TAB PO SCH (09:13)
[2021-01-28] MEDS: Zinc Sulfate 220 MG CAP PO SCH (09:13)
[2021-01-28] MEDS: Vitamin E 400 UNITS CAP PO SCH (09:15)
[2021-01-28] MEDS: Apixaban 5 MG TAB PO SCH ×2 (09:15→20:31)
[2021-01-28] MEDS: Fluticasone Propionate Nasal Spray 16 gm Bottle NASAL SCH (09:16)
[2021-01-28] MEDS: Dexamethasone 4 MG TAB PO SCH (09:28)
[2021-01-28] MEDS: Benzonatate 100 MG CAP PO PRN ×2 (15:18→20:31)
[2021-01-28] MEDS: Melatonin 3 MG TAB PO PRN (20:31)
[2021-01-29] MEDS: Budesonide 0.5 MG/2 ML NEB NEB SCH ×2 (08:14→21:47)
[2021-01-29] MEDS: Ascorbic Acid 500 mg Chewable Tablet PO SCH (08:46)
[2021-01-29] MEDS: Vitamin E 400 UNITS CAP PO SCH (08:46)
[2021-01-29] MEDS: Apixaban 5 MG TAB PO SCH ×2 (08:46→20:19)
[2021-01-29] MEDS: Benzonatate 100 MG CAP PO PRN ×2 (08:47→22:03)
[2021-01-29] MEDS: Zinc Sulfate 220 MG CAP PO SCH (08:47)
[2021-01-29] MEDS: Fluticasone Propionate Nasal Spray 16 gm Bottle NASAL SCH (08:47)
[2021-01-29] MEDS: Cholecalciferol 1,000 UNITS (25 MCG) TAB PO SCH (08:47)
[2021-01-29] MEDS: Dexamethasone 4 MG TAB PO SCH (08:58)
[2021-01-29] MEDS: Melatonin 3 MG TAB PO PRN (22:02)
[2021-01-30] MEDS: Apixaban 5 MG TAB PO SCH ×2 (08:33→20:33)
[2021-01-30] MEDS: Fluticasone Propionate Nasal Spray 16 gm Bottle NASAL SCH (08:33)
[2021-01-30] MEDS: Ascorbic Acid 500 mg Chewable Tablet PO SCH (08:33)
[2021-01-30] MEDS: Dexamethasone 4 MG TAB PO SCH (08:34)
[2021-01-30] MEDS: Zinc Sulfate 220 MG CAP PO SCH (08:34)
[2021-01-30] MEDS: Cholecalciferol 1,000 UNITS (25 MCG) TAB PO SCH (08:34)
[2021-01-30] MEDS: Vitamin E 400 UNITS CAP PO SCH (08:34)
[2021-01-30] MEDS ORDERED: Dexamethasone 4 MG TAB PO SCH (10:00)
[2021-01-30] MEDS: Budesonide 0.5 MG/2 ML NEB NEB SCH ×2 (11:34→19:24)
[2021-01-30] MEDS: Melatonin 3 MG TAB PO PRN (20:33)
[2021-01-30] MEDS: Guaifenesin DM 100-10/5 ML UDCUP PO PRN (20:34)
[2021-01-31] MEDS: Budesonide 0.5 MG/2 ML NEB NEB SCH ×2 (06:52→19:32)
[2021-01-31] MEDS: Guaifenesin DM 100-10/5 ML UDCUP PO PRN ×3 (08:38→21:00)
[2021-01-31] MEDS: Apixaban 5 MG TAB PO SCH ×2 (08:39→21:00)
[2021-01-31] MEDS: Cholecalciferol 1,000 UNITS (25 MCG) TAB PO SCH (08:39)
[2021-01-31] MEDS: Dexamethasone 4 MG TAB PO SCH (08:39)
[2021-01-31] MEDS: Ascorbic Acid 500 mg Chewable Tablet PO SCH (08:39)
[2021-01-31] MEDS: Vitamin E 400 UNITS CAP PO SCH (08:39)
[2021-01-31] MEDS: Fluticasone Propionate Nasal Spray 16 gm Bottle NASAL SCH (08:39)
[2021-01-31] MEDS: Zinc Sulfate 220 MG CAP PO SCH (08:39)
[2021-01-31] MEDS: Benzonatate 100 MG CAP PO PRN (16:27)
[2021-01-31] MEDS: Melatonin 3 MG TAB PO PRN (21:00)
[2021-02-01] MEDS: Guaifenesin DM 100-10/5 ML UDCUP PO PRN ×5 (02:01→23:40)
[2021-02-01 06:54] LABS: #Basophils 0.1 thou/uL (0.0-0.2); #Eosinphils 0.6 thou/uL (0.0-0.7); #Lymphocytes 5.3 thou/uL (1.20-3.40); #Monocytes 1.2 thou/uL (0.11-0.59); #Neutrophils 12.3 thou/uL (1.40-6.50); %Basophils 0.3 % (0.0-1.0); %Eosinophils 3.3 % (0.0-10.0); %Lymphocytes 27.3 % (21.0-51.0); %Neutrophils 63.1 % (42.0-75.0); Hemoglobin 14.4 g/dL (14.0-18.0); Mean Corpuscular HGB CONC 32.1 g/dL (32.0-36.0); Mean Corpuscular Volume 84.3 fL (78.0-98.0); Mean Platelet Volume 7.2 fL (7.4-10.4); Platelet Count 225 thou/uL (130-400); RBC Distribution Width 15.5 % (11.5-14.5); Red Blood Cell (RBC) Count 5.31 mill/uL (4.70-6.10); White Blood Cell (WBC) Count 19.5 thou/uL (4.8-10.8)
[2021-02-01 07:08] LABS: Anion Gap 11 mmol/L (10-20); BUN (Urea Nitrogen) 19 mg/dL (8.9-20.6); Calc. Creatinine Clearance 217 mL/min (70-130); Calcium 8.7 mg/dL (7.8-10.44); Carbon Dioxide 28 mmol/L (22-29); Chloride 104 mmol/L (98-107); Glucose 95 mg/dL (70-105); Sodium 139 mmol/L (136-145)
[2021-02-01] MEDS: Budesonide 0.5 MG/2 ML NEB NEB SCH ×2 (07:40→21:14)
[2021-02-01] MEDS: Vitamin E 400 UNITS CAP PO SCH (08:45)
[2021-02-01] MEDS: Cholecalciferol 1,000 UNITS (25 MCG) TAB PO SCH (08:45)
[2021-02-01] MEDS: Ascorbic Acid 500 mg Chewable Tablet PO SCH (08:45)
[2021-02-01] MEDS: Dexamethasone 4 MG TAB PO SCH (08:45)
[2021-02-01] MEDS: Fluticasone Propionate Nasal Spray 16 gm Bottle NASAL SCH (08:45)
[2021-02-01] MEDS: Zinc Sulfate 220 MG CAP PO SCH (08:45)
[2021-02-01] MEDS: Apixaban 5 MG TAB PO SCH ×2 (08:45→19:38)
[2021-02-01] MEDS: Albuterol 200 PUFF (6.7GM INHALER) INH PRN (10:30)
[2021-02-01] MEDS: Benzonatate 100 MG CAP PO PRN (15:18)
[2021-02-01] MEDS: Melatonin 3 MG TAB PO PRN (21:25)
[2021-02-02 00:26] VITALS: TEMP 97.8
[2021-02-02] MEDS: Guaifenesin DM 100-10/5 ML UDCUP PO PRN ×3 (03:48→13:35)
[2021-02-02] MEDS: Budesonide 0.5 MG/2 ML NEB NEB SCH (06:50)
[2021-02-02 07:21] VITALS: BP 100/68
[2021-02-02] MEDS: Apixaban 5 MG TAB PO SCH (08:42)
[2021-02-02] MEDS: Fluticasone Propionate Nasal Spray 16 gm Bottle NASAL SCH (08:42)
[2021-02-02] MEDS: Dexamethasone 4 MG TAB PO SCH (08:42)
[2021-02-02] MEDS: Vitamin E 400 UNITS CAP PO SCH (08:42)
[2021-02-02] MEDS: Cholecalciferol 1,000 UNITS (25 MCG) TAB PO SCH (08:42)
[2021-02-02] MEDS: Ascorbic Acid 500 mg Chewable Tablet PO SCH (08:42)
[2021-02-02] MEDS: Zinc Sulfate 220 MG CAP PO SCH (08:42)
[2021-02-02] MEDS ORDERED: Enoxaparin Sodium 40 MG/0.4 ML SYRINGE SC SCH (09:00)
[2021-02-02 12:52] VITALS: BMI 30.4
== END 2021-02-02 17:39 | disposition home or self-care (01) | DRG 871 ==
LOC: T4-B 09:03 → IMCU/EMU 01-10 05:47 → CCU 01-19 12:27 → IMCU/EMU 01-26 10:23 → T4-B 01-29 19:10
PROVIDERS: ADMIT Internal Medicine; ATTEND Hospitalist
PROC: XW033E5 Introduction of Remdesivir Anti-infective into Peripheral Vein, Percutaneous Approach, New Technology Group 5 (ICD-10-PCS; principal; 2021-01-08)
PROC: 8E0ZXY6 Isolation (ICD-10-PCS; 2021-01-08)
PROC: 5A0955A Assistance with Respiratory Ventilation, Greater than 96 Consecutive Hours, High Flow/Velocity Cannula (ICD-10-PCS; 2021-01-10)
PROC: XW033H5 Introduction of Tocilizumab into Peripheral Vein, Percutaneous Approach, New Technology Group 5 (ICD-10-PCS; 2021-01-16)
PROC: 5A09357 Assistance with Respiratory Ventilation, Less than 24 Consecutive Hours, Continuous Positive Airway Pressure (ICD-10-PCS; 2021-01-17)
DX: A41.89 Other specified sepsis (principal); U07.1 COVID-19; J12.82 Pneumonia due to coronavirus disease 2019; J96.01 Acute respiratory failure with hypoxia; E87.1 Hypo-osmolality and hyponatremia; E86.9 Volume depletion, unspecified; F41.9 Anxiety disorder, unspecified; R79.89 Other specified abnormal findings of blood chemistry; J45.20 Mild intermittent asthma, uncomplicated; E66.9 Obesity, unspecified; Z68.30 Body mass index [BMI] 30.0-30.9, adult
CPT/HCPCS: 31500; 36415; 71045; 71275; 80048; 80053; 82565; 82728; 83735; 84100; 84145; 85014; 85018; 85025; 85049; 85379; 86140; 94640; 94660; C9113; J1100; J1642; J1650; J1940; J2060; J3262; J3490; J7050; J7626; J8540; Q9967